=== PATIENT | male | born 1950 | race African-American/Black ===

== ENCOUNTER 2018-09-15 12:24 | Inpatient (IN) | payer MEDICARE, MEDICAID ==
[2018-09-15] VITALS (30 sets, daily range): BP systolic 108–145; BP diastolic 59–80
[~2018-09-15] VITALS: Ht 190.5 cm; Wt 93.5 kg
[2018-09-15 13:04] LABS: BASOPHILS % 0.4 % (0.0-2.0); EOSINOPHILS % 0.4 % (0.0-5.0); HEMATOCRIT. 42.6 % (42.0-52.0); HEMOGLOBIN. 14.4 g/dL (14.0-18.0); MEAN CORPUSCULAR HEMOGLOBIN 30.4 pg (28.0-32.0); MEAN CORPUSCULAR VOLUME 90.2 fL (80.0-94.0); MEAN PLATELET VOLUME 8.3 fl (7.4-10.4); NEUTROPHILS % 71.2 % (40.0-76.0); PLATELET 212 x1000/uL (130-400); RED BLOOD CELL COUNT 4.72 mill/uL (4.7-6.1); RED CELL DISTRIBUTION WIDTH 13.1 % (11.6-14.6)
[2018-09-15 13:10] LABS: CHLORIDE 107 mEq/L (98-107)
[2018-09-15 13:11] LABS: INR 1.1; PROTHROMBIN TIME 10.9 sec (9.1-11.1)
[2018-09-15] MEDS ORDERED: LABETALOL HCL 20MG/4ML CARPUJECT IV ONE (13:45)
[2018-09-15] MEDS: DEXT 5%/LACTATED RINGERS 1,000 ML IV SCH ×2 (14:12→18:26)
[2018-09-15] MEDS ORDERED: ACETAMINOPHEN 650MG SUPP PR PRN (14:15)
[2018-09-15] MEDS ORDERED: NICARDIPINE 100 MG in SODIUM CHLORIDE 0.9% 60 ML IV PRN ×3 (14:15→17:30)
[2018-09-15] MEDS ORDERED: IPRATROPIUM/ALBUTEROL 0.5-3(2.5)MG/3ML NEB INH PRN (14:15)
[2018-09-15] MEDS ORDERED: DEXT 5%/LACTATED RINGERS 1,000 ML IV SCH (15:15)
[2018-09-15] MEDS: DEXAMETHASONE 4MG/ML 1ML VIAL IV SCH (18:28)
[2018-09-15] MEDS ORDERED: LEVETIRACETAM 500MG PREMIX 100 ML IV SCH (21:00)
[2018-09-15] MEDS: LEVETIRACETAM 500MG in SODIUM CHLORIDE 0.9% 100ML IV SCH (22:59)
[2018-09-16] VITALS (81 sets, daily range): BP systolic 86–162; BP diastolic 22–89
[2018-09-16] MEDS: DEXT 5%/LACTATED RINGERS 1,000 ML IV SCH (05:51)
[2018-09-16] MEDS: DEXAMETHASONE 4MG/ML 1ML VIAL IV SCH ×4 (05:51→17:33)
[2018-09-16] MEDS: PANTOPRAZOLE SODIUM 40 MG/VIAL IV SCH (09:11)
[2018-09-16] MEDS: LEVETIRACETAM 500MG in SODIUM CHLORIDE 0.9% 100ML IV SCH ×2 (09:12→20:11)
[2018-09-16 12:43] LABS: BASOPHILS % 0.1 % (0.0-2.0); HEMATOCRIT. 38.6 % (42.0-52.0); HEMOGLOBIN. 13.2 g/dL (14.0-18.0); LYMPHOCYTES % 15.7 % (20.0-50.0); MEAN CORPUSCULAR HEMOGLOBIN 30.4 pg (28.0-32.0); MEAN CORPUSCULAR VOLUME 89.2 fL (80.0-94.0); MEAN PLATELET VOLUME 8.5 fl (7.4-10.4); MONOCYTES % 1.7 % (2.0-8.0); NEUTROPHILS % 82.5 % (40.0-76.0); PLATELET 219 x1000/uL (130-400); RED BLOOD CELL COUNT 4.33 mill/uL (4.7-6.1); RED CELL DISTRIBUTION WIDTH 13.3 % (11.6-14.6)
[2018-09-16 12:47] LABS: CHLORIDE 108 mEq/L (98-107)
[2018-09-16] MEDS: GENVOYA PO SCH (15:35)
[2018-09-16] MEDS: PREZISTA 800 MG PO SCH (15:35)
[2018-09-17] VITALS (34 sets, daily range): BP systolic 123–191; BP diastolic 49–134
[2018-09-17] MEDS: DEXT 5%/LACTATED RINGERS 1,000 ML IV SCH (01:43)
[2018-09-17 05:52] LABS: BASOPHILS % 0.1 % (0.0-2.0); HEMATOCRIT. 38.9 % (42.0-52.0); LYMPHOCYTES % 21.1 % (20.0-50.0); MEAN CORPUSCULAR HEMOGLOBIN 30.3 pg (28.0-32.0); MEAN CORPUSCULAR VOLUME 90.8 fL (80.0-94.0); MEAN PLATELET VOLUME 8.8 fl (7.4-10.4); MONOCYTES % 5.5 % (2.0-8.0); NEUTROPHILS % 73.3 % (40.0-76.0); PLATELET 234 x1000/uL (130-400); RED BLOOD CELL COUNT 4.29 mill/uL (4.7-6.1); RED CELL DISTRIBUTION WIDTH 13.3 % (11.6-14.6)
[2018-09-17 06:01] LABS: CHLORIDE 109 mEq/L (98-107)
[2018-09-17 08:26] LABS: OPIATES URINE SCREEN NEGATIVE (NEGATIVE)
[2018-09-17 08:27] LABS: *AMPHETAMINES SCREEN URINE NEGATIVE (NEGATIVE); *BARBITURATES SCREEN URINE NEGATIVE (NEGATIVE); CANNABINOID URINE SCREEN NEGATIVE (NEGATIVE); PHENCYCLIDINE URINE SCREEN NEGATIVE (NEGATIVE)
[2018-09-17 08:28] LABS: *BENZODIAZEPINES SCREEN URINE NEGATIVE (NEGATIVE); *COCAINE SCREEN URINE NEGATIVE (NEGATIVE); METHADONE URINE SCREEN NEGATIVE (NEGATIVE)
[2018-09-17] MEDS: LEVETIRACETAM 500MG in SODIUM CHLORIDE 0.9% 100ML IV SCH ×2 (10:07→21:23)
[2018-09-17] MEDS: PANTOPRAZOLE SODIUM 40 MG/VIAL IV SCH (10:08)
[2018-09-18 00:42] VITALS: BP 134/69
[2018-09-18 04:00] VITALS: BP 138/82
[2018-09-18 08:00] VITALS: BP 150/87
[2018-09-18] MEDS: FAMOTIDINE 20MG/2ML VIAL IV SCH ×2 (08:19→23:17)
[2018-09-18] MEDS: GENVOYA PO SCH (08:23)
[2018-09-18] MEDS: PREZISTA 800 MG PO SCH (08:23)
[2018-09-18] MEDS: DEXT 5%/LACTATED RINGERS 1,000 ML IV SCH (08:25)
[2018-09-18] MEDS: LEVETIRACETAM 500MG in SODIUM CHLORIDE 0.9% 100ML IV SCH ×2 (08:35→23:15)
[2018-09-18 12:00] VITALS: BP 148/71
[2018-09-18 16:00] VITALS: BP 137/75
[2018-09-18 20:00] VITALS: BP 150/80
[2018-09-19] VITALS: BP 155/86
[2018-09-19 04:00] VITALS: BP 160/88
[2018-09-19] MEDS ORDERED: CLONIDINE 0.1MG TABLET PO PRN (07:15)
[2018-09-19 08:00] VITALS: BP 161/84
[2018-09-19] MEDS: PREZISTA 800 MG PO SCH (08:24)
[2018-09-19] MEDS: GENVOYA PO SCH (08:24)
[2018-09-19] MEDS: DEXT 5%/LACTATED RINGERS 1,000 ML IV SCH (08:27)
[2018-09-19] MEDS ORDERED: AMLODIPINE 10MG TABLET PO SCH (09:00)
[2018-09-19] MEDS: LEVETIRACETAM 500MG in SODIUM CHLORIDE 0.9% 100ML IV SCH (09:19)
[2018-09-19] MEDS: FAMOTIDINE 20MG/2ML VIAL IV SCH (09:19)
[2018-09-19 11:41] VITALS: BP 149/84
[2018-09-19 12:00] VITALS: BP 135/74
== END 2018-09-19 12:47 | DRG 65 ==
LOC: ER 12:24 → MICUSO 13:38 → EDBEDREQ 13:40 → EDBEDREQSVC 13:40 → SUPCPDRO 14:10 → ENRESERV 15:31 → 6EST 09-17 11:17
PROVIDERS: ADMIT Internal Medicine; ATTEND Internal Medicine
DX: I61.3 Nontraumatic intracerebral hemorrhage in brain stem (principal); I69.351 Hemiplegia and hemiparesis following cerebral infarction affecting right dominant side; R47.01 Aphasia; D64.9 Anemia, unspecified; R13.10 Dysphagia, unspecified; R47.1 Dysarthria and anarthria; R29.2 Abnormal reflex; R26.9 Unspecified abnormalities of gait and mobility; I10 Essential (primary) hypertension; Z82.3 Family history of stroke; Z21 Asymptomatic human immunodeficiency virus [HIV] infection status
CPT/HCPCS: 36415; 70544; 70553; 71045; 80048; 80061; 80305; 80320; 83036; 84484; 92610; 93005; 93306; 93970; 96374; 96375; 97163; 97166; 97530; 99291; C9113; J1100; J1953; J3490; J7050; J7121; G0480

== ENCOUNTER 2018-09-19 12:30 | Inpatient (IN) | payer MEDICARE, MEDICAID ==
[~2018-09-19] VITALS: Ht 190.5 cm; Wt 93.0 kg
[2018-09-19 12:40] VITALS: BP 128/72
[2018-09-19] MEDS ORDERED: CLONIDINE 0.1MG TABLET PO PRN (13:45)
[2018-09-19] MEDS ORDERED: ACETAMINOPHEN 650MG SUPP PR PRN (13:45)
[2018-09-19] MEDS ORDERED: IPRATROPIUM/ALBUTEROL 0.5-3(2.5)MG/3ML NEB HHN PRN (13:45)
[2018-09-19] MEDS: DEXT 5%/LACTATED RINGERS 1,000 ML IV SCH (15:29)
[2018-09-19 20:00] VITALS: BP 122/66
[2018-09-19] MEDS: FAMOTIDINE 20MG/2ML VIAL IV SCH (20:47)
[2018-09-19] MEDS: LEVETIRACETAM 500 MG in SODIUM CHLORIDE 0.9% 100 ML IV SCH (21:28)
[2018-09-20] MEDS: DEXT 5%/LACTATED RINGERS 1,000 ML IV SCH (06:14)
[2018-09-20 07:21] LABS: CHLORIDE 103 mEq/L (98-107)
[2018-09-20 07:26] LABS: BASOPHILS % 0.4 % (0.0-2.0); EOSINOPHILS % 1.5 % (0.0-5.0); HEMATOCRIT. 38.2 % (42.0-52.0); HEMOGLOBIN. 12.7 g/dL (14.0-18.0); MEAN CORPUSCULAR HEMOGLOBIN 30.2 pg (28.0-32.0); MEAN CORPUSCULAR VOLUME 90.6 fL (80.0-94.0); MEAN PLATELET VOLUME 8.6 fl (7.4-10.4); MONOCYTES % 8.9 % (2.0-8.0); NEUTROPHILS % 63.2 % (40.0-76.0); PLATELET 224 x1000/uL (130-400); RED BLOOD CELL COUNT 4.22 mill/uL (4.7-6.1); RED CELL DISTRIBUTION WIDTH 13.4 % (11.6-14.6)
[2018-09-20 08:00] VITALS: BP 134/52
[2018-09-20] MEDS: LEVETIRACETAM 500 MG in SODIUM CHLORIDE 0.9% 100 ML IV SCH (09:57)
[2018-09-20] MEDS: FAMOTIDINE 20MG/2ML VIAL IV SCH (09:57)
[2018-09-20] MEDS: PREZISTA 800 MG PO SCH (09:58)
[2018-09-20] MEDS: GENVOYA PO SCH (09:58)
[2018-09-20] MEDS: AMLODIPINE 10MG TABLET PO SCH (10:03)
[2018-09-20 20:00] VITALS: BP 121/63
[2018-09-20] MEDS: FAMOTIDINE 20MG TABLET PO SCH (21:11)
[2018-09-20] MEDS: LEVETIRACETAM 500MG TABLET PO SCH (21:12)
[2018-09-21 06:49] LABS: BASOPHILS % 0.2 % (0.0-2.0); EOSINOPHILS % 1.4 % (0.0-5.0); HEMATOCRIT. 40.2 % (42.0-52.0); HEMOGLOBIN. 13.5 g/dL (14.0-18.0); LYMPHOCYTES % 33.3 % (20.0-50.0); MEAN CORPUSCULAR HEMOGLOBIN 30.4 pg (28.0-32.0); MEAN CORPUSCULAR VOLUME 90.6 fL (80.0-94.0); MEAN PLATELET VOLUME 8.3 fl (7.4-10.4); MONOCYTES % 8.2 % (2.0-8.0); NEUTROPHILS % 56.9 % (40.0-76.0); PLATELET 226 x1000/uL (130-400); RED BLOOD CELL COUNT 4.43 mill/uL (4.7-6.1); RED CELL DISTRIBUTION WIDTH 13.6 % (11.6-14.6)
[2018-09-21 07:22] LABS: FOLIC ACID (FOLATE) SERUM 9.7 ng/mL (>5.38); PROSTRATE SPECIFIC AG TOTAL 5.54 ng/mL (0.0-4.0)
[2018-09-21 07:29] LABS: CHLORIDE 106 mEq/L (98-107)
[2018-09-21 07:37] LABS: PHOSPHORUS 2.8 mg/dL (2.5-4.9)
[2018-09-21 07:38] LABS: LDL CHOLESTEROL 55 mg/dL (5-100)
[2018-09-21 07:40] LABS: HDL CHOLESTEROL 28 mg/dL (40-59)
[2018-09-21 07:41] LABS: TOTAL IRON BINDING CAPACITY 311 ug/dL (250-450)
[2018-09-21 07:43] LABS: CREATINE KINASE 185 IU/L (39-308)
[2018-09-21 08:00] VITALS: BP 124/70
[2018-09-21] MEDS: FAMOTIDINE 20MG TABLET PO SCH ×2 (09:12→21:32)
[2018-09-21] MEDS: LEVETIRACETAM 500MG TABLET PO SCH ×2 (09:12→21:32)
[2018-09-21] MEDS: PREZISTA 800 MG PO SCH (09:13)
[2018-09-21] MEDS: GENVOYA PO SCH (09:13)
[2018-09-21] MEDS: AMLODIPINE 10MG TABLET PO SCH (09:16)
[2018-09-21] MEDS: LACTULOSE 20G/30ML UDC PO SCH ×2 (12:29→21:32)
[2018-09-21] MEDS: CYANOCOBALAMIN 1000MCG/ML VIAL IM SCH (15:26)
[2018-09-21 20:00] VITALS: BP 119/62
[2018-09-22] MEDS: LACTULOSE 20G/30ML UDC PO SCH ×3 (05:18→21:29)
[2018-09-22 08:00] VITALS: BP 120/70
[2018-09-22] MEDS: CYANOCOBALAMIN 1000MCG/ML VIAL IM SCH (08:39)
[2018-09-22] MEDS: LEVETIRACETAM 500MG TABLET PO SCH ×2 (08:39→21:29)
[2018-09-22] MEDS: FAMOTIDINE 20MG TABLET PO SCH ×2 (08:40→21:29)
[2018-09-22] MEDS: AMLODIPINE 10MG TABLET PO SCH (08:40)
[2018-09-22] MEDS: PREZISTA 800 MG PO SCH (08:41)
[2018-09-22] MEDS: GENVOYA PO SCH (08:42)
[2018-09-22] MEDS ORDERED: EZ-HD SUSPENSION(BARIUM SULFATE 340GM) PO ONE (13:36)
[2018-09-22 20:00] VITALS: BP 109/66
[2018-09-23] MEDS: LACTULOSE 20G/30ML UDC PO SCH (06:00)
[2018-09-23 07:04] LABS: BASOPHILS % 0.7 % (0.0-2.0); EOSINOPHILS % 1.7 % (0.0-5.0); HEMATOCRIT. 45.1 % (42.0-52.0); LYMPHOCYTES % 30.3 % (20.0-50.0); MEAN CORPUSCULAR HEMOGLOBIN 30.2 pg (28.0-32.0); MEAN CORPUSCULAR VOLUME 90.8 fL (80.0-94.0); MEAN PLATELET VOLUME 8.5 fl (7.4-10.4); MONOCYTES % 6.9 % (2.0-8.0); NEUTROPHILS % 60.4 % (40.0-76.0); PLATELET 244 x1000/uL (130-400); RED BLOOD CELL COUNT 4.97 mill/uL (4.7-6.1); RED CELL DISTRIBUTION WIDTH 13.1 % (11.6-14.6)
[2018-09-23 07:38] LABS: CHLORIDE 105 mEq/L (98-107)
[2018-09-23 08:00] VITALS: BP 128/72
[2018-09-23 08:07] VITALS: BP 128/72
[2018-09-23] MEDS: GENVOYA PO SCH (08:48)
[2018-09-23] MEDS: CYANOCOBALAMIN 1000MCG/ML VIAL IM SCH (08:48)
[2018-09-23] MEDS: PREZISTA 800 MG PO SCH (08:48)
[2018-09-23] MEDS: FAMOTIDINE 20MG TABLET PO SCH ×2 (08:49→21:19)
[2018-09-23] MEDS: LEVETIRACETAM 500MG TABLET PO SCH ×2 (08:49→21:18)
[2018-09-23] MEDS: AMLODIPINE 10MG TABLET PO SCH (08:49)
[2018-09-23 20:00] VITALS: BP 109/52
[2018-09-24 08:00] VITALS: BP 121/67
[2018-09-24] MEDS: PREZISTA 800 MG PO SCH (08:58)
[2018-09-24] MEDS: GENVOYA PO SCH (08:58)
[2018-09-24] MEDS: FAMOTIDINE 20MG TABLET PO SCH ×2 (08:59→21:19)
[2018-09-24] MEDS: CYANOCOBALAMIN 1000MCG/ML VIAL IM SCH (08:59)
[2018-09-24] MEDS: AMLODIPINE 10MG TABLET PO SCH (08:59)
[2018-09-24] MEDS: LEVETIRACETAM 500MG TABLET PO SCH ×2 (08:59→21:19)
[2018-09-24] MEDS: DULOXETINE HCL 20MG DR CAPSULE PO SCH (17:33)
[2018-09-24 20:00] VITALS: BP 114/67
[2018-09-25 04:23] LABS: 25-HYDROXY VITAMIN D3 7.9 ng/mL (.)
[2018-09-25 07:30] VITALS: BP 116/64
[2018-09-25] MEDS: GENVOYA PO SCH (08:46)
[2018-09-25] MEDS: LEVETIRACETAM 500MG TABLET PO SCH ×2 (08:46→21:39)
[2018-09-25] MEDS: FAMOTIDINE 20MG TABLET PO SCH ×2 (08:46→21:39)
[2018-09-25] MEDS: DULOXETINE HCL 20MG DR CAPSULE PO SCH (08:46)
[2018-09-25] MEDS: PREZISTA 800 MG PO SCH (08:46)
[2018-09-25] MEDS: AMLODIPINE 10MG TABLET PO SCH (08:47)
[2018-09-25] MEDS: CYANOCOBALAMIN 1000MCG/ML VIAL IM SCH (08:47)
[2018-09-25] MEDS: ERGOCALCIFEROL 50000UNITS CAPSULE PO SCH (16:34)
[2018-09-25 20:00] VITALS: BP 102/56
[2018-09-26 07:10] LABS: BASOPHILS % 0.8 % (0.0-2.0); HEMATOCRIT. 41.2 % (42.0-52.0); HEMOGLOBIN. 13.8 g/dL (14.0-18.0); LYMPHOCYTES % 34.9 % (20.0-50.0); MEAN CORPUSCULAR HEMOGLOBIN 30.3 pg (28.0-32.0); MEAN CORPUSCULAR VOLUME 90.5 fL (80.0-94.0); MEAN PLATELET VOLUME 8.7 fl (7.4-10.4); MONOCYTES % 8.9 % (2.0-8.0); NEUTROPHILS % 54.4 % (40.0-76.0); PLATELET 226 x1000/uL (130-400); RED BLOOD CELL COUNT 4.55 mill/uL (4.7-6.1); RED CELL DISTRIBUTION WIDTH 13.3 % (11.6-14.6)
[2018-09-26 07:25] LABS: CHLORIDE 108 mEq/L (98-107)
[2018-09-26] MEDS: PREZISTA 800 MG PO SCH (08:15)
[2018-09-26] MEDS: GENVOYA PO SCH (08:16)
[2018-09-26] MEDS: FAMOTIDINE 20MG TABLET PO SCH ×2 (08:16→21:28)
[2018-09-26] MEDS: AMLODIPINE 10MG TABLET PO SCH (08:16)
[2018-09-26] MEDS: LEVETIRACETAM 500MG TABLET PO SCH ×2 (08:17→21:28)
[2018-09-26] MEDS: DULOXETINE HCL 20MG DR CAPSULE PO SCH (08:17)
[2018-09-26] MEDS: ERGOCALCIFEROL 50000UNITS CAPSULE PO SCH (08:17)
[2018-09-26 08:42] VITALS: BP 117/60
[2018-09-26] MEDS ORDERED: LACTULOSE 20G/30ML UDC PO PRN (12:00)
[2018-09-26] MEDS: SULFAMETHOXAZOLE/TRIMETHOPRIM 800/160MG TABLET PO SCH (17:23)
[2018-09-26] MEDS: AZITHROMYCIN 600 MG TABLET PO SCH (18:29)
[2018-09-26 20:00] VITALS: BP 114/61
[2018-09-27 08:00] VITALS: BP 99/54
[2018-09-27] MEDS: AMLODIPINE 10MG TABLET PO SCH (09:00)
[2018-09-27] MEDS: LEVETIRACETAM 500MG TABLET PO SCH ×2 (10:16→20:21)
[2018-09-27] MEDS: FAMOTIDINE 20MG TABLET PO SCH ×2 (10:16→20:21)
[2018-09-27] MEDS: SULFAMETHOXAZOLE/TRIMETHOPRIM 800/160MG TABLET PO SCH (10:16)
[2018-09-27] MEDS: DULOXETINE HCL 20MG DR CAPSULE PO SCH (10:16)
[2018-09-27] MEDS: GENVOYA PO SCH (10:17)
[2018-09-27] MEDS: PREZISTA 800 MG PO SCH (10:17)
[2018-09-27 20:00] VITALS: BP 102/55
[2018-09-28 08:00] VITALS: BP 112/63
[2018-09-28] MEDS: GENVOYA PO SCH (08:00)
[2018-09-28] MEDS: FAMOTIDINE 20MG TABLET PO SCH ×2 (08:00→20:57)
[2018-09-28] MEDS: DULOXETINE HCL 20MG DR CAPSULE PO SCH (08:00)
[2018-09-28] MEDS: PREZISTA 800 MG PO SCH (08:00)
[2018-09-28] MEDS: AMLODIPINE 10MG TABLET PO SCH (08:01)
[2018-09-28] MEDS: LEVETIRACETAM 500MG TABLET PO SCH ×2 (08:01→20:57)
[2018-09-28] MEDS: SULFAMETHOXAZOLE/TRIMETHOPRIM 800/160MG TABLET PO SCH (08:06)
[2018-09-28 09:06] LABS: ABSOLUTE LYMPHOCYTES 2.8 x10E3/uL (0.7-3.1); ABSOLUTE MONOCYTES 0.6 x10E3/uL (0.1-0.9); ABSOLUTE NEUTROPHILS 6.8 x10E3/uL (1.4-7.0); BASOPHILS 0 % (Not Estab.); HEMOGLOBIN 13.5 g/dL (13.0-17.7); IMMATURE GRANULOCYTES 0 % (Not Estab.); LYMPHOCYTES 27 % (Not Estab.); MEAN CORPUSCULAR HEMOGLOBIN 29.8 pg (26.6-33.0); MEAN CORPUSCULAR HGB CONC. 33.8 g/dL (31.5-35.7); MEAN CORPUSCULAR VOLUME 88 fL (79-97); MONOCYTES 6 % (Not Estab.); NEUTROPHILS 67 % (Not Estab.); PLATELETS 235 x10E3/uL (150-379); RBC 4.53 x10E6/uL (4.14-5.80); RED CELL DISTRIBUTION WIDTH 14.1 % (12.3-15.4); WBC 10.2 x10E3/uL (3.4-10.8)
[2018-09-28] MEDS ORDERED: NA PHOS,M-B/NA PHOS,DI-BA ENEMA 118ML PR NR (11:30)
[2018-09-28 13:06] LABS: % CD 3 POS. LYMPHOCYTES 89.1 % (57.5-86.2); % CD 4 POS. LYMPHOCYTES 8.5 % (30.8-58.5); % CD 8 POS. LYMPH 78.2 % (12.0-35.5); ABSOLUTE CD 3 2495 /uL (622-2402); ABSOLUTE CD 4 HELPER 238 /uL (359-1519); ABSOLUTE CD 8 SUPPRESSOR 2190 /uL (109-897); CD4/CD8 RATIO 0.11 (0.92-3.72)
[2018-09-28 20:00] VITALS: BP 108/60
[2018-09-29 06:43] LABS: CHLORIDE 108 mEq/L (98-107)
[2018-09-29 06:59] LABS: BASOPHILS % 0.8 % (0.0-2.0); EOSINOPHILS % 1.4 % (0.0-5.0); HEMATOCRIT. 41.2 % (42.0-52.0); HEMOGLOBIN. 13.7 g/dL (14.0-18.0); LYMPHOCYTES % 31.9 % (20.0-50.0); MEAN CORPUSCULAR HEMOGLOBIN 30.2 pg (28.0-32.0); MEAN CORPUSCULAR VOLUME 90.7 fL (80.0-94.0); MEAN PLATELET VOLUME 8.7 fl (7.4-10.4); MONOCYTES % 7.6 % (2.0-8.0); NEUTROPHILS % 58.3 % (40.0-76.0); PLATELET 235 x1000/uL (130-400); RED BLOOD CELL COUNT 4.54 mill/uL (4.7-6.1); RED CELL DISTRIBUTION WIDTH 13.4 % (11.6-14.6)
[2018-09-29 08:00] VITALS: BP 107/62
[2018-09-29] MEDS: AMLODIPINE 10MG TABLET PO SCH (09:00)
[2018-09-29] MEDS: FAMOTIDINE 20MG TABLET PO SCH ×2 (09:08→20:25)
[2018-09-29] MEDS: GENVOYA PO SCH (09:09)
[2018-09-29] MEDS: LEVETIRACETAM 500MG TABLET PO SCH ×2 (09:09→20:25)
[2018-09-29] MEDS: PREZISTA 800 MG PO SCH (09:09)
[2018-09-29] MEDS: SULFAMETHOXAZOLE/TRIMETHOPRIM 800/160MG TABLET PO SCH (09:09)
[2018-09-29] MEDS: DULOXETINE HCL 20MG DR CAPSULE PO SCH (09:09)
[2018-09-29 20:00] VITALS: BP 122/68
[2018-09-30 08:06] VITALS: BP 107/64
[2018-09-30] MEDS: PREZISTA 800 MG PO SCH (08:28)
[2018-09-30] MEDS: GENVOYA PO SCH (08:28)
[2018-09-30] MEDS: LEVETIRACETAM 500MG TABLET PO SCH ×2 (08:29→20:54)
[2018-09-30] MEDS: DULOXETINE HCL 20MG DR CAPSULE PO SCH (08:29)
[2018-09-30] MEDS: FAMOTIDINE 20MG TABLET PO SCH ×2 (08:29→20:54)
[2018-09-30] MEDS: SULFAMETHOXAZOLE/TRIMETHOPRIM 800/160MG TABLET PO SCH (08:29)
[2018-09-30] MEDS: AMLODIPINE 10MG TABLET PO SCH (08:30)
[2018-09-30 20:00] VITALS: BP 115/73
[2018-10-01 08:30] VITALS: BP 101/61
[2018-10-01] MEDS: AMLODIPINE 10MG TABLET PO SCH (09:00)
[2018-10-01] MEDS: LEVETIRACETAM 500MG TABLET PO SCH ×2 (09:09→22:29)
[2018-10-01] MEDS: SULFAMETHOXAZOLE/TRIMETHOPRIM 800/160MG TABLET PO SCH (09:10)
[2018-10-01] MEDS: FAMOTIDINE 20MG TABLET PO SCH ×2 (09:10→22:29)
[2018-10-01] MEDS: DULOXETINE HCL 20MG DR CAPSULE PO SCH (09:11)
[2018-10-01] MEDS: PREZISTA 800 MG PO SCH (09:14)
[2018-10-01] MEDS: GENVOYA PO SCH (09:14)
[2018-10-01] MEDS ORDERED: ACETAMINOPHEN 325MG TABLET PO PRN (12:00)
[2018-10-01 20:00] VITALS: BP 108/58
[2018-10-02 06:27] LABS: BASOPHILS % 0.5 % (0.0-2.0); EOSINOPHILS % 0.7 % (0.0-5.0); HEMOGLOBIN. 13.3 g/dL (14.0-18.0); LYMPHOCYTES % 19.4 % (20.0-50.0); MEAN CORPUSCULAR HEMOGLOBIN 30.1 pg (28.0-32.0); MEAN CORPUSCULAR VOLUME 90.5 fL (80.0-94.0); MONOCYTES % 4.3 % (2.0-8.0); NEUTROPHILS % 75.1 % (40.0-76.0); PLATELET 225 x1000/uL (130-400); RED BLOOD CELL COUNT 4.43 mill/uL (4.7-6.1); RED CELL DISTRIBUTION WIDTH 13.4 % (11.6-14.6)
[2018-10-02 07:33] LABS: CHLORIDE 107 mEq/L (98-107)
[2018-10-02 08:00] VITALS: BP 106/60
[2018-10-02] MEDS: AMLODIPINE 10MG TABLET PO SCH (09:00)
[2018-10-02] MEDS: GENVOYA PO SCH (09:21)
[2018-10-02] MEDS: LEVETIRACETAM 500MG TABLET PO SCH ×2 (09:22→21:42)
[2018-10-02] MEDS: SULFAMETHOXAZOLE/TRIMETHOPRIM 800/160MG TABLET PO SCH (09:22)
[2018-10-02] MEDS: PREZISTA 800 MG PO SCH (09:22)
[2018-10-02] MEDS: FAMOTIDINE 20MG TABLET PO SCH ×2 (09:22→21:42)
[2018-10-02] MEDS: DULOXETINE HCL 20MG DR CAPSULE PO SCH (09:22)
[2018-10-02] MEDS: ERGOCALCIFEROL 50000UNITS CAPSULE PO SCH (09:24)
[2018-10-02 20:00] VITALS: BP 117/72
[2018-10-03 08:00] VITALS: BP 100/64
[2018-10-03] MEDS: AMLODIPINE 10MG TABLET PO SCH (09:00)
[2018-10-03] MEDS: SULFAMETHOXAZOLE/TRIMETHOPRIM 800/160MG TABLET PO SCH (09:50)
[2018-10-03] MEDS: DULOXETINE HCL 20MG DR CAPSULE PO SCH (09:50)
[2018-10-03] MEDS: FAMOTIDINE 20MG TABLET PO SCH ×2 (09:50→20:47)
[2018-10-03] MEDS: LEVETIRACETAM 500MG TABLET PO SCH ×2 (09:50→20:47)
[2018-10-03] MEDS: PREZISTA 800 MG PO SCH (09:51)
[2018-10-03] MEDS: GENVOYA PO SCH (09:51)
[2018-10-03] MEDS: AZITHROMYCIN 600 MG TABLET PO SCH (17:49)
[2018-10-03 20:00] VITALS: BP 109/63
[2018-10-04 06:41] LABS: BASOPHILS % 1.2 % (0.0-2.0); EOSINOPHILS % 2.7 % (0.0-5.0); HEMATOCRIT. 39.9 % (42.0-52.0); HEMOGLOBIN. 13.2 g/dL (14.0-18.0); LYMPHOCYTES % 47.3 % (20.0-50.0); MEAN CORPUSCULAR HEMOGLOBIN 30.1 pg (28.0-32.0); MEAN CORPUSCULAR VOLUME 91.3 fL (80.0-94.0); MEAN PLATELET VOLUME 8.5 fl (7.4-10.4); MONOCYTES % 8.9 % (2.0-8.0); NEUTROPHILS % 39.9 % (40.0-76.0); PLATELET 212 x1000/uL (130-400); RED BLOOD CELL COUNT 4.38 mill/uL (4.7-6.1); RED CELL DISTRIBUTION WIDTH 13.7 % (11.6-14.6)
[2018-10-04 07:36] LABS: CHLORIDE 105 mEq/L (98-107)
[2018-10-04 08:46] VITALS: BP 101/61
[2018-10-04] MEDS: PREZISTA 800 MG PO SCH (08:56)
[2018-10-04] MEDS: GENVOYA PO SCH (08:56)
[2018-10-04] MEDS: FAMOTIDINE 20MG TABLET PO SCH ×2 (08:57→21:41)
[2018-10-04] MEDS: LEVETIRACETAM 500MG TABLET PO SCH ×2 (08:57→21:41)
[2018-10-04] MEDS: DULOXETINE HCL 20MG DR CAPSULE PO SCH (08:57)
[2018-10-04] MEDS: AMLODIPINE 10MG TABLET PO SCH (08:57)
[2018-10-04 20:00] VITALS: BP 111/62
[2018-10-04] MEDS: LACTULOSE 20G/30ML UDC PO SCH (21:42)
[2018-10-05] MEDS: LACTULOSE 20G/30ML UDC PO SCH ×3 (06:15→22:42)
[2018-10-05 08:23] VITALS: BP 107/60
[2018-10-05] MEDS: AMLODIPINE 10MG TABLET PO SCH (09:00)
[2018-10-05] MEDS: DULOXETINE HCL 20MG DR CAPSULE PO SCH (09:36)
[2018-10-05] MEDS: LEVETIRACETAM 500MG TABLET PO SCH ×2 (09:36→22:38)
[2018-10-05] MEDS: FAMOTIDINE 20MG TABLET PO SCH ×2 (09:36→22:39)
[2018-10-05] MEDS: PREZISTA 800 MG PO SCH (09:39)
[2018-10-05] MEDS: GENVOYA PO SCH (09:39)
[2018-10-05 20:00] VITALS: BP 100/59
[2018-10-06] MEDS: LACTULOSE 20G/30ML UDC PO SCH ×3 (05:20→22:01)
[2018-10-06 06:31] LABS: EOSINOPHILS % 3.6 % (0.0-5.0); HEMATOCRIT. 37.1 % (42.0-52.0); HEMOGLOBIN. 12.4 g/dL (14.0-18.0); LYMPHOCYTES % 45.5 % (20.0-50.0); MEAN CORPUSCULAR HEMOGLOBIN 30.3 pg (28.0-32.0); MEAN CORPUSCULAR VOLUME 90.6 fL (80.0-94.0); MEAN PLATELET VOLUME 8.6 fl (7.4-10.4); MONOCYTES % 8.6 % (2.0-8.0); NEUTROPHILS % 41.3 % (40.0-76.0); PLATELET 210 x1000/uL (130-400); RED BLOOD CELL COUNT 4.09 mill/uL (4.7-6.1); RED CELL DISTRIBUTION WIDTH 13.5 % (11.6-14.6)
[2018-10-06 07:23] LABS: CHLORIDE 107 mEq/L (98-107)
[2018-10-06 08:00] VITALS: BP 117/57
[2018-10-06] MEDS: AMLODIPINE 10MG TABLET PO SCH (09:00)
[2018-10-06] MEDS: DULOXETINE HCL 20MG DR CAPSULE PO SCH (09:50)
[2018-10-06] MEDS: LEVETIRACETAM 500MG TABLET PO SCH ×2 (09:50→22:01)
[2018-10-06] MEDS: GENVOYA PO SCH (09:50)
[2018-10-06] MEDS: FAMOTIDINE 20MG TABLET PO SCH ×2 (09:50→22:01)
[2018-10-06] MEDS: PREZISTA 800 MG PO SCH (09:51)
[2018-10-06 20:00] VITALS: BP 132/63
[2018-10-07] MEDS: LACTULOSE 20G/30ML UDC PO SCH ×3 (05:54→21:36)
[2018-10-07 08:00] VITALS: BP 115/69
[2018-10-07] MEDS: PREZISTA 800 MG PO SCH (08:44)
[2018-10-07] MEDS: LEVETIRACETAM 500MG TABLET PO SCH ×2 (08:44→21:36)
[2018-10-07] MEDS: AMLODIPINE 10MG TABLET PO SCH (08:44)
[2018-10-07] MEDS: GENVOYA PO SCH (08:44)
[2018-10-07] MEDS: DULOXETINE HCL 20MG DR CAPSULE PO SCH (08:44)
[2018-10-07] MEDS: FAMOTIDINE 20MG TABLET PO SCH ×2 (08:46→21:36)
[2018-10-07 20:00] VITALS: BP 109/63
[2018-10-08] MEDS: LACTULOSE 20G/30ML UDC PO SCH ×3 (06:24→17:15)
[2018-10-08 08:03] VITALS: BP 117/66
[2018-10-08] MEDS: DULOXETINE HCL 20MG DR CAPSULE PO SCH (08:37)
[2018-10-08] MEDS ORDERED: BARIUM SULFATE 176 GM SUSP.RECON ONE (08:37)
[2018-10-08] MEDS: FAMOTIDINE 20MG TABLET PO SCH ×2 (08:37→22:13)
[2018-10-08] MEDS: LEVETIRACETAM 500MG TABLET PO SCH ×2 (08:37→22:13)
[2018-10-08] MEDS: GENVOYA PO SCH (08:37)
[2018-10-08] MEDS: PREZISTA 800 MG PO SCH (08:37)
[2018-10-08] MEDS: AMLODIPINE 10MG TABLET PO SCH (08:37)
[2018-10-08 20:00] VITALS: BP 103/63
[2018-10-09 07:06] LABS: BASOPHILS % 1.1 % (0.0-2.0); CHLORIDE 110 mEq/L (98-107); EOSINOPHILS % 1.8 % (0.0-5.0); HEMATOCRIT. 37.7 % (42.0-52.0); HEMOGLOBIN. 12.6 g/dL (14.0-18.0); LYMPHOCYTES % 45.8 % (20.0-50.0); MEAN CORPUSCULAR HEMOGLOBIN 30.3 pg (28.0-32.0); MEAN CORPUSCULAR VOLUME 90.7 fL (80.0-94.0); MEAN PLATELET VOLUME 8.3 fl (7.4-10.4); NEUTROPHILS % 43.3 % (40.0-76.0); PLATELET 216 x1000/uL (130-400); RED BLOOD CELL COUNT 4.16 mill/uL (4.7-6.1); RED CELL DISTRIBUTION WIDTH 13.4 % (11.6-14.6)
[2018-10-09 08:32] VITALS: BP 108/60
[2018-10-09] MEDS: LACTULOSE 20G/30ML UDC PO SCH (09:00)
[2018-10-09] MEDS: AMLODIPINE 10MG TABLET PO SCH (09:00)
[2018-10-09] MEDS: ERGOCALCIFEROL 50000UNITS CAPSULE PO SCH (09:16)
[2018-10-09] MEDS: LEVETIRACETAM 500MG TABLET PO SCH ×2 (09:16→21:41)
[2018-10-09] MEDS: FAMOTIDINE 20MG TABLET PO SCH ×2 (09:16→21:41)
[2018-10-09] MEDS: GENVOYA PO SCH ×2 (09:18→09:30)
[2018-10-09] MEDS: PREZISTA 800 MG PO SCH (09:19)
[2018-10-09] MEDS: DULOXETINE HCL 20MG DR CAPSULE PO SCH (09:20)
[2018-10-09 20:00] VITALS: BP 122/71
[2018-10-10 08:33] VITALS: BP 119/75
[2018-10-10] MEDS: LACTULOSE 20G/30ML UDC PO SCH ×3 (09:00→17:00)
[2018-10-10] MEDS: PREZISTA 800 MG PO SCH (09:28)
[2018-10-10] MEDS: GENVOYA PO SCH (09:28)
[2018-10-10] MEDS: LEVETIRACETAM 500MG TABLET PO SCH ×2 (09:29→20:50)
[2018-10-10] MEDS: AMLODIPINE 10MG TABLET PO SCH (09:29)
[2018-10-10] MEDS: FAMOTIDINE 20MG TABLET PO SCH ×2 (09:29→20:50)
[2018-10-10] MEDS: DULOXETINE HCL 20MG DR CAPSULE PO SCH (09:29)
[2018-10-10 20:00] VITALS: BP 109/58
[2018-10-11 05:57] LABS: BASOPHILS % 1.2 % (0.0-2.0); EOSINOPHILS % 3.2 % (0.0-5.0); HEMATOCRIT. 36.3 % (42.0-52.0); HEMOGLOBIN. 12.3 g/dL (14.0-18.0); LYMPHOCYTES % 50.9 % (20.0-50.0); MEAN CORPUSCULAR HEMOGLOBIN 30.7 pg (28.0-32.0); MEAN CORPUSCULAR VOLUME 90.8 fL (80.0-94.0); MEAN PLATELET VOLUME 8.4 fl (7.4-10.4); MONOCYTES % 10.3 % (2.0-8.0); NEUTROPHILS % 34.4 % (40.0-76.0); PLATELET 206 x1000/uL (130-400); RED CELL DISTRIBUTION WIDTH 13.4 % (11.6-14.6)
[2018-10-11 07:15] LABS: CHLORIDE 104 mEq/L (98-107)
[2018-10-11 08:00] VITALS: BP 119/74
[2018-10-11] MEDS: FAMOTIDINE 20MG TABLET PO SCH ×2 (08:49→21:24)
[2018-10-11] MEDS: LACTULOSE 20G/30ML UDC PO SCH ×2 (08:50→17:00)
[2018-10-11] MEDS: DULOXETINE HCL 20MG DR CAPSULE PO SCH (08:50)
[2018-10-11] MEDS: LEVETIRACETAM 500MG TABLET PO SCH ×2 (08:50→21:24)
[2018-10-11] MEDS: AMLODIPINE 10MG TABLET PO SCH (08:51)
[2018-10-11] MEDS: GENVOYA PO SCH (08:51)
[2018-10-11] MEDS: PREZISTA 800 MG PO SCH (08:51)
[2018-10-11 20:00] VITALS: BP 113/61
[2018-10-12 07:54] VITALS: BP 121/75
[2018-10-12] MEDS: GENVOYA PO SCH (09:00)
[2018-10-12] MEDS: LACTULOSE 20G/30ML UDC PO SCH ×2 (09:02→17:15)
[2018-10-12] MEDS: FAMOTIDINE 20MG TABLET PO SCH ×2 (09:02→20:45)
[2018-10-12] MEDS: AMLODIPINE 10MG TABLET PO SCH (09:02)
[2018-10-12] MEDS: DULOXETINE HCL 20MG DR CAPSULE PO SCH (09:02)
[2018-10-12] MEDS: LEVETIRACETAM 500MG TABLET PO SCH ×2 (09:02→20:45)
[2018-10-12] MEDS: PREZISTA 800 MG PO SCH (09:02)
[2018-10-12] MEDS ORDERED: DULOXETINE HCL 20MG DR CAPSULE PO SCH (09:30)
[2018-10-12] MEDS: DULOXETINE HCL 30MG DR CAPSULE PO SCH (13:40)
[2018-10-12 20:00] VITALS: BP 113/59
[2018-10-13 06:27] LABS: CHLORIDE 109 mEq/L (98-107)
[2018-10-13 06:40] LABS: BASOPHILS % 0.9 % (0.0-2.0); EOSINOPHILS % 2.2 % (0.0-5.0); HEMATOCRIT. 37.3 % (42.0-52.0); HEMOGLOBIN. 12.5 g/dL (14.0-18.0); LYMPHOCYTES % 41.9 % (20.0-50.0); MEAN CORPUSCULAR HEMOGLOBIN 30.3 pg (28.0-32.0); MEAN CORPUSCULAR VOLUME 89.9 fL (80.0-94.0); MEAN PLATELET VOLUME 8.5 fl (7.4-10.4); MONOCYTES % 8.2 % (2.0-8.0); NEUTROPHILS % 46.8 % (40.0-76.0); PLATELET 220 x1000/uL (130-400); RED BLOOD CELL COUNT 4.14 mill/uL (4.7-6.1); RED CELL DISTRIBUTION WIDTH 13.6 % (11.6-14.6)
[2018-10-13 08:05] VITALS: BP 117/68
[2018-10-13] MEDS: DULOXETINE HCL 30MG DR CAPSULE PO SCH (08:58)
[2018-10-13] MEDS: LEVETIRACETAM 500MG TABLET PO SCH ×2 (08:58→21:11)
[2018-10-13] MEDS: LACTULOSE 20G/30ML UDC PO SCH ×2 (08:58→17:09)
[2018-10-13] MEDS: AMLODIPINE 10MG TABLET PO SCH (08:59)
[2018-10-13] MEDS: PREZISTA 800 MG PO SCH (08:59)
[2018-10-13] MEDS: GENVOYA PO SCH (09:00)
[2018-10-13] MEDS: FAMOTIDINE 20MG TABLET PO SCH ×2 (09:01→21:11)
[2018-10-13 20:00] VITALS: BP 121/65
[2018-10-14 08:00] VITALS: BP 140/83
[2018-10-14] MEDS: DULOXETINE HCL 30MG DR CAPSULE PO SCH (08:29)
[2018-10-14] MEDS: AMLODIPINE 10MG TABLET PO SCH (08:29)
[2018-10-14] MEDS: FAMOTIDINE 20MG TABLET PO SCH ×2 (08:29→23:17)
[2018-10-14] MEDS: LACTULOSE 20G/30ML UDC PO SCH ×2 (08:29→17:00)
[2018-10-14] MEDS: LEVETIRACETAM 500MG TABLET PO SCH ×2 (08:29→23:17)
[2018-10-14] MEDS: GENVOYA PO SCH (09:00)
[2018-10-14] MEDS: PREZISTA 800 MG PO SCH (09:00)
[2018-10-14 20:00] VITALS: BP 127/70
[2018-10-15 08:00] VITALS: BP 116/67
[2018-10-15] MEDS: LACTULOSE 20G/30ML UDC PO SCH (08:24)
[2018-10-15] MEDS: LEVETIRACETAM 500MG TABLET PO SCH ×2 (08:24→21:14)
[2018-10-15] MEDS: DULOXETINE HCL 30MG DR CAPSULE PO SCH (08:24)
[2018-10-15] MEDS: AMLODIPINE 10MG TABLET PO SCH (08:24)
[2018-10-15] MEDS: FAMOTIDINE 20MG TABLET PO SCH ×2 (08:25→21:14)
[2018-10-15] MEDS: PREZISTA 800 MG PO SCH (08:25)
[2018-10-15] MEDS: GENVOYA PO SCH (08:25)
[2018-10-15 20:00] VITALS: BP 129/74
[2018-10-16 08:00] VITALS: BP 118/76
[2018-10-16] MEDS: GENVOYA PO SCH (09:04)
[2018-10-16] MEDS: PREZISTA 800 MG PO SCH (09:04)
[2018-10-16] MEDS: ERGOCALCIFEROL 50000UNITS CAPSULE PO SCH (09:10)
[2018-10-16] MEDS: AMLODIPINE 10MG TABLET PO SCH (09:10)
[2018-10-16] MEDS: LEVETIRACETAM 500MG TABLET PO SCH ×2 (09:10→22:05)
[2018-10-16] MEDS: DULOXETINE HCL 30MG DR CAPSULE PO SCH (09:10)
[2018-10-16] MEDS: FAMOTIDINE 20MG TABLET PO SCH ×2 (09:10→22:05)
[2018-10-16] MEDS: LACTULOSE 20G/30ML UDC PO SCH ×2 (09:11→17:01)
[2018-10-16 20:00] VITALS: BP 110/61
[2018-10-17 07:24] LABS: BASOPHILS % 0.6 % (0.0-2.0); EOSINOPHILS % 1.9 % (0.0-5.0); HEMATOCRIT. 36.7 % (42.0-52.0); HEMOGLOBIN. 12.2 g/dL (14.0-18.0); MEAN CORPUSCULAR HEMOGLOBIN 30.2 pg (28.0-32.0); MEAN CORPUSCULAR VOLUME 90.9 fL (80.0-94.0); MEAN PLATELET VOLUME 8.6 fl (7.4-10.4); MONOCYTES % 7.3 % (2.0-8.0); NEUTROPHILS % 55.2 % (40.0-76.0); PLATELET 197 x1000/uL (130-400); RED BLOOD CELL COUNT 4.04 mill/uL (4.7-6.1); RED CELL DISTRIBUTION WIDTH 13.8 % (11.6-14.6)
[2018-10-17 08:00] VITALS: BP 106/60
[2018-10-17] MEDS: AMLODIPINE 10MG TABLET PO SCH (09:00)
[2018-10-17 09:04] LABS: CHLORIDE 106 mEq/L (98-107)
[2018-10-17] MEDS: PREZISTA 800 MG PO SCH (09:43)
[2018-10-17] MEDS: GENVOYA PO SCH (09:43)
[2018-10-17] MEDS: FAMOTIDINE 20MG TABLET PO SCH (09:44)
[2018-10-17] MEDS: LACTULOSE 20G/30ML UDC PO SCH (09:44)
[2018-10-17] MEDS: LEVETIRACETAM 500MG TABLET PO SCH (09:44)
[2018-10-17] MEDS: DULOXETINE HCL 30MG DR CAPSULE PO SCH (09:44)
[2018-10-17 12:03] VITALS: BP 106/60
== END 2018-10-17 14:55 | DRG 65 ==
PROVIDERS: ADMIT Physical Medicine & Rehabilitation Spinal Cord Injury Medicine; ATTEND Internal Medicine
DX: I61.3 Nontraumatic intracerebral hemorrhage in brain stem (principal); I69.151 Hemiplegia and hemiparesis following nontraumatic intracerebral hemorrhage affecting right dominant side; E44.1 Mild protein-calorie malnutrition; R47.01 Aphasia; B20 Human immunodeficiency virus [HIV] disease; R13.10 Dysphagia, unspecified; D63.8 Anemia in other chronic diseases classified elsewhere; I10 Essential (primary) hypertension; R29.810 Facial weakness; R73.03 Prediabetes; R47.1 Dysarthria and anarthria
CPT/HCPCS: 36415; 74230; 76700; 80048; 80061; 80076; 82140; 82306; 82550; 82607; 82728; 82746; 82962; 83036; 83540; 83550; 83735; 84100; 84134; 84153; 84443; 86359; 86360; 92508; 92523; 92610; 92611; 93970; 94660; 97110; 97112; 97116; 97163; 97166; 97530; 97535; A4565; A6261; G0515; J1953; J3420; J3490; J7050; J7121; J7620; A5200; G0103

== ENCOUNTER 2019-05-09 11:51 | Emergency (ER) | payer MEDICARE, MEDICAID ==
[~2019-05-09] VITALS: Ht 193 cm; Wt 100.0 kg
[2019-05-09 13:57] LABS: BASOPHILS % 0.3 % (0.0-2.0); EOSINOPHILS % 0.9 % (0.0-5.0); HEMATOCRIT. 41.1 % (42.0-52.0); HEMOGLOBIN. 14.2 g/dL (14.0-18.0); LYMPHOCYTES % 14.6 % (20.0-50.0); MEAN CORPUSCULAR HEMOGLOBIN 32.1 pg (28.0-32.0); MEAN PLATELET VOLUME 8.1 fl (7.4-10.4); NEUTROPHILS % 78.2 % (40.0-76.0); PLATELET 254 x1000/uL (130-400); RED BLOOD CELL COUNT 4.42 mill/uL (4.7-6.1)
[2019-05-09 14:04] LABS: CHLORIDE 106 mEq/L (98-107)
[2019-05-09 21:02] VITALS: BP 131/80
== END 2019-05-09 21:34 | disposition home or self-care (01) ==
LOC: ER 12:24
DX: R42 Dizziness and giddiness (principal); E11.9 Type 2 diabetes mellitus without complications; I10 Essential (primary) hypertension; Z86.73 Personal history of transient ischemic attack (TIA), and cerebral infarction without residual deficits; Z95.0 Presence of cardiac pacemaker; Z88.0 Allergy status to penicillin
CPT/HCPCS: 36415; 71045; 84484; 99284